=== PATIENT | male | born 1995 | race Caucasian/White ===

== ENCOUNTER 2022-04-10 06:25 | Emergency (ER) | payer BC, SELFPAY ==
[2022-04-10 06:28] VITALS: BP 151/87; PULSE 77; RESP 18; TEMP 35.7; O2SAT 100; BMI 25.6
--- NOTE | 2022-04-10 06:45 | EX.ED.VIS.UR ---
HPI HPI - URI History of Present Illness Chief Complaint: Ear Problem Informant: patient Onset/Context/Timing Onset: Today Context: Sudden Onset Timing: Continuous Quality: Pressure, sharp Location: Left ear Worsened by: - (Coughing) Relieved by: - (Nothing) Associated Symptoms Associated Symptoms: Positive for Nasal Congestion, Diarrhea and Productive Cough; Negative for Headache, Sinus Pressure, Myalgias, Nausea, Vomiting, Shortness of Breath, Chest Pain, Nonproductive cough or Hemoptysis Narrative Narrative: Patient presents with left ear pain that began today. Patient states he woke up and felt pressure in his left ear. Patient states he felt sharp pain in his ear and then noted some drainage coming out of his left ear. Patient states it has been constant. Patient states it is worse with coughing. Patient admits to some nasal congestion but states he has a history of seasonal allergies. Patient states he has been coughing up some clear sputum. Patient denies any fevers or chills. Patient states he has had some diarrhea over the past couple of days. ROS ROS ED Constitutional Constitutional ED: Denies chills or fever(s) Eyes Eyes: Denies blurry vision or change in vision ENT ENT ED: Reports ear pain left and rhinorrhea; Denies sore throat Cardiovascular Cardiovascular: Denies chest pain or palpitations Respiratory/Chest Respiratory/Chest: Reports cough; Denies dyspnea Gastrointestinal Gastrointestinal: Reports diarrhea; Denies nausea or vomiting Genitourinary Genitourinary ED: Denies dysuria or hematuria Musculoskeletal Musculoskeletal: Denies back pain or neck pain Integumentary Denies abscess or rash Neurologic Neurologic: Denies headache(s) or weakness Allergic/Immunologic Allergic/Immunologic ED: Denies mouth swelling or urticaria PFSH PFSH Medical History no medical history no medical history Home Medications azithromycin 250 mg tablet 250 mg PO DAILY #4 TABLETS 04/10/22 [Rx Last Taken Unknown] Allergy/AdvReac Type Severity Reaction Status Date / Time amoxicillin Allergy Hives Verified 04/10/22 06:26 Penicillins [PCN] Allergy Hives Verified 04/10/22 06:26 Surgical History no surgical history no surgical history Social History Smoking Status: Never smoker EXAM Physical Exam Const Vital Signs: 04/10/22 06:28 Temperature 96.3 F L Temperature Source Temporal Pulse Rate 77 Respiratory Rate 18 Blood Pressure 151/87 H Blood Pressure Mean 108 Pulse Ox 100 Oxygen Delivery Method Room Air Positive well nourished and well developed General Appearance ED: well developed and NAD HEENT Reports moist mucous membranes HEENT Narrative: The right tympanic membrane was clear. The left tympanic membrane was erythematous. There is an effusion noted. There is a questionable perforation over the inferior aspect of the left tympanic membrane. There is no active drainage noted. There is no pain with manipulation of the external ear. normocephalic and atraumatic Throat: posterior oropharynx normal Neck supple and no JVD Resp normal respiratory effort and clear to auscultation bilaterally Cardio Rate: regular rate Rhythm: regular rhythm Neuro oriented x3, CN's II-XII intact bilaterally and no sensory deficits noted Sensorium / Orientation: alert Motor Exam: strength 5/5 throughout Psych mental status grossly normal MDM MDM MDM Narrative Medical decision making narrative: Patient was advised that this is most likely otitis media with possible perforation. Patient was given a prescription for Zithromax. Patient was given his first dose here. Patient was instructed to wear an ear plug in his left ear whenever he showers. Patient was instructed to avoid swimming. Patient was instructed to avoid getting any water in his left ear. Patient was given a referral for ENT. Patient was instructed to follow-up in 5 to 7 days. Patient understood and was agreeable with the plan. All questions were answered. Discharge Plan Triage Chief Complaint: Ear Problem ED Provider: Ascencion Rolle Dx/Rx/DC Orders Clinical Impression: Acute left otitis media, Perforation of left tympanic membrane Instructions: ED Otitis Media Antibiotic ..., ED PERFORATED TM Infected [Adult] Prescriptions: New azithromycin [azithromycin] 250 MG tablet 250 mg PO DAILY Qty: 4 0RF Primary Care Provider: Care Physician,No Primary Referrals: Jan Robledo MD [STAFF PHYSICIAN] - 5-7 Days Fast,DO Shanna [NON-STAFF] - 5-7 Days Care Physician,No Primary [Primary Care Provider] - Disposition Disposition: Home, Self Care
[2022-04-10] MEDS: HYDROcodone Bitartrate/Apap 5/325 Tablet PO (07:06)
[2022-04-10] MEDS: Azithromycin 250 MG Tablet 500 MG PO (07:06)
== END 2022-04-10 07:11 | disposition home or self-care (01) ==
LOC: ED 07:01
PROVIDERS: Emergency Provider Emergency Medicine; Visit Provider Emergency Medicine
DX: H66.92 Otitis media, unspecified, left ear (principal); H72.92 Unspecified perforation of tympanic membrane, left ear
CPT/HCPCS: 99283